=== PATIENT | male | born 1985 | race African-American/Black ===

== ENCOUNTER 2016-05-18 10:06 | Day surgery (SDC) | payer OTHER ==
[2016-05-15 16:20] VITALS: BMI 25.8
[2016-05-18] MEDS ORDERED: BUPIVACAINE HCL/PF 0.5% (5MG/ML) 10 ML VIAL ONE ×2 (11:24→13:42)
[2016-05-18] MEDS ORDERED: SEVOFLURANE 250 ML BTL ONE (14:16)
[2016-05-18] MEDS ORDERED: DESFLURANE GAS 240 ML BOTTLE IH ONE (14:16)
[2016-05-18] MEDS ORDERED: DEXAMETHASONE SOD PHOSPHATE 4 MG/1 ML VIAL ONE (14:21)
[2016-05-18] MEDS ORDERED: ROCURONIUM BROMIDE 50 MG/5 ML VIAL ONE (14:21)
[2016-05-18] MEDS ORDERED: ceFAZolin SODIUM 1 GM VIAL ONE (14:21)
[2016-05-18] MEDS ORDERED: SODIUM CHLORIDE 0.9% P/F 10 ML VIAL IJ ONE (14:21)
[2016-05-18] MEDS ORDERED: MIDAZOLAM HCL 2 MG/2 ML SINGLE DOSE VIAL ONE (14:21)
[2016-05-18] MEDS ORDERED: KETOROLAC TROMETHAMINE 30 MG/1 ML VIAL ONE (14:21)
--- NOTE | 2016-05-18 14:31 | OP ---
Operative Note - Note: Operative Date: 05/18/16 Pre-Operative Diagnosis: Incarcerated right inguinoscrotal hernia. Operation: Repair of right inguinal hernia with mesh. Findings: Large , and wide hernial sac . Indirect inguinal hernia. repaired with plug and mesh. Surgeon: Tong García Sports Commentator: Tiffani Pa Anesthesiologist/DISTRICT LOSS PREVENTION MANAGER: Johnson Rendon Anesthesia: General Specimens Removed: Hernial sac Estimated Blood Loss (mls): 10 Operative Report Dictated: Yes
[2016-05-18] MEDS ORDERED: ceFAZolin SODIUM 1 GM VIAL IVPB ONE (14:32)
[2016-05-18] MEDS ORDERED: NEOSTIGMINE METHYLSULFATE 0.5 MG/ML - 10 ML MDV ONE (14:50)
[2016-05-18] MEDS ORDERED: GLYCOPYRROLATE 0.2 MG/1 ML VIAL ONE (14:50)
[2016-05-18] MEDS ORDERED: ONDANSETRON 4 MG/2 ML VIAL IVPUSH PRN (15:20)
[2016-05-18] MEDS ORDERED: PROMETHAZINE HCL 25 MG/1 ML VIAL IVPUSH PRN (15:20)
[2016-05-18] MEDS ORDERED: LACTATED RINGERS SOLUTION 1,000 ML IV SCH (15:30)
[2016-05-18] MEDS ORDERED: BUPIVACAINE HCL/PF 0.5% (5MG/ML) 10 ML VIAL IJ ONE (15:31)
--- NOTE | 2016-05-18 16:04 | SURG ---
Surgery Bale Piler Note Bale Piler: Tiffani Pa PA-C Date of Service: 05/18/16 Diagnosis: Incarcerated right inguinoscrotal hernia. Procedure: . Repair of right inguinal hernia with mesh. I was present for the entirety of the operative procedure. For further detail, please refer to operative report. Visit type - Case Type Case Type: Scheduled Admission - Emergency Emergency Visit: No - New patient This patient is new to me today: No - Critical Care Critical Care patient: No
[2016-05-18 17:23] VITALS: TEMP 99
[2016-05-18 18:07] VITALS: BP 135/79; PULSE 94
--- NOTE | 2016-05-20 11:35 | OP ---
DATE OF OPERATION: 05/18/2016 PREOPERATIVE DIAGNOSIS: Incarcerated right inguinal scrotal hernia. POSTOPERATIVE DIAGNOSIS: Indirect right inguinal hernia. PROCEDURE PERFORMED: Repair of right inguinal hernia, incarcerated, with mesh. SURGEON: Summer García MD DOG RACES MANAGER: AMARJIT Stallings ANESTHESIA: General anesthesia. INDICATIONS: This 31-year-old man had large inguinal scrotal swelling on the right side. The patient was brought in for repair of the hernia. Consent was obtained. The risks, benefits and complications were discussed with the patient. DESCRIPTION OF PROCEDURE: The patient was given 1 g of Ancef. The site was marked. General anesthesia was administered. A time-out was called. The right groin was painted and draped. Incision was made in the right groin at the level of the skin crease. The incision was deepened inside the skin and subcutaneous tissue, Angel fascia and external oblique aponeurosis. The ilioinguinal nerve was identified and preserved throughout the procedure. The cord structures were then isolated around a 1/2-inch Jose G drain. The cord was then exposed by incising the cremasteric muscle and the external and external spermatic muscle and fascia. The sac was identified. This was from the rest of the cord structures all the way down to the internal ring. There was a large wide indirect sac. This was ligated at the level of the internal ring and divided distal to it. The specimen was sent to Pathology. The peritoneum was then pushed behind through the internal ring, to the abdominal wall. A large plug was then inserted through the ring and sutured with 2-0 Prolene sutures behind the transversus abdominis muscle and fascia by putting a suture through the internal oblique and transversus abdominis muscle, and then brought through the internal ring, caught the outer leaf of the plug, and was reinserted through the internal ring and brought out through the abdominal wall. Two sutures were obtained, one above and lateral to the internal ring and the second above and medial to the internal ring. The plug was then inserted through the ring and placed behind the abdominal wall. Mesh was then placed over the internal oblique muscle and across the posterior wall of the inguinal canal, to the shelving edge of the inguinal ligament. This was anchored at the level of the pubic tubercle with 2-0 Prolene sutures. The inferior leaf of the mesh was placed over the shelving edge of the inguinal ligament and anchored with the VersaTack tacker. The superior leaf of the mesh was incorporated to the suture holding the plug behind the abdominal wall, and the 2 limbs of the suture were brought through the mesh and the knot was fashioned. Laterally, the suture was placed over both leaves of the mesh as it came over the internal ring, and a new internal ring was created. The mesh was thus adequately placed. A few extra tackers were placed to hold the mesh against the internal oblique muscle. Hemostasis was satisfactory. The wound was irrigated. Marcaine 0.5% was injected into the wound around the cord structures, around the ilioinguinal nerve, iliohypogastric nerves and at the level of the pubic tubercle. The external oblique aponeurosis was then approximated with continuous 3-0 Vicryl sutures. Angel fascia was approximated with buried interrupted 3-0 Vicryl sutures. The skin and subcutaneous fat were approximated with buried interrupted 3-0 Vicryl sutures. The skin was approximated with continuous 4-0 Monocryl sutures in a running subcuticular fashion. Dermabond was applied across the skin edges. Estimated blood loss was less than 10 mL. Sponge and instrument counts were correct. The patient was extubated and sent to the recovery room in satisfactory and stable condition. Yosef BLANCO/[id number] MTDD
--- NOTE | 2016-05-23 13:17 | PATH ---
Surgical Pathology Report Patient Name: SUMMER DELATORRE [facility]. Rec. #: [id number] /Age/Gender: 1985 (Age: 31) / M Account: [id number] Location: [facility] SURGICAL Taken: 05/18/2016 Received: 05/21/2016 Reported: 05/23/2016 Physicians: Summer García M.D. Specimen(s) Received A: HERNIA SAC B: LIPOMA OF CORD Clinical History Right inguinal hernia Final Diagnosis A. HERNIA SAC, RIGHT INGUINAL HERNIA REPAIR: MESOTHELIUM LINED BENIGN FIBROMEMBRANOUS TISSUE CONSISTENT WITH HERNIA SAC. B. SOFT TISSUE, LIPOMA OF CORD, EXCISION: MATURE BENIGN ADIPOSE TISSUE CONSISTENT WITH LIPOMA. Electronically Signed Quinton Bacon M.D. Gross Description A. Received in formalin, labeled "hernia sac" is a 4.0 x 2.0 x 0.8 cm aj-montana, irregular portion of fibromembranous tissue with minimal attached fat, consistent with a hernia sac. No masses or areas of hemorrhage or necrosis are identified. Metallography Teacher sections are submitted in one cassette. B. Received in formalin, labeled "lipoma of the cord" is a 5.3 x 1.3 x 0.9 cm irregular portion of yellow, lobulated adipose tissue. Sectioning reveals homogeneous yellow, smooth fat. Metallography Teacher sections are submitted in one cassette. 05/21/201605/21/2016
== END 2016-05-18 18:11 | disposition home or self-care (01) ==
LOC: JASU-SURG 10:06
PROVIDERS: ATTEND Specialist
PROC: 0YU50JZ Supplement Right Inguinal Region with Synthetic Substitute, Open Approach (ICD-10-PCS; principal; 2016-05-18 11:30)
DX: K40.30 Unilateral inguinal hernia, with obstruction, without gangrene, not specified as recurrent (principal)
CPT/HCPCS: 88302-TC; 88304-TC; 94760